=== PATIENT | female | born 1990 | race Caucasian/White ===

== ENCOUNTER 2017-01-22 18:41 | Emergency (ER) | payer OTHER ==
[2017-01-22 18:46] VITALS: BP 137/79; BMI 30.5
[2017-01-22] MEDS ORDERED: TORADOL 60 MG VIAL IM ONE (19:40)
--- NOTE | 2017-01-22 19:41 | DR.GENAD ---
HPI - PCP Primary Care Physician: NFD - Complaint/Symptoms Chief Complaint Doctors Comments: History as stated. Denies LOC Chief Complaint:: PT STATES" I HIT MY HEAD ON A BAR AT WORK TODAY I'VE HAD A HEADACHE EVERY SINCE THEN". DENIES LOC PT HAS A LARGE PATCH OF HAIR MISSING - Source History Provided: Patient - Mode of Arrival Mode of Arrival: Ambulatory - Timing Onset of Chief Complaint: 01/22/17 PMH - PMH Past Medical History: No Past Surgical History: No - Family History History of Family Medical Conditions: Yes Family Medical History: Hypertension - Social History Alcohol Use: None Do you use any recreational Drugs:: No Lives With: Family Lives Where: Home - infectious screening In the last 2 months have you had wt loss of >10#?: NO Have you had fever, night sweats or hemotysis?: No Have you traveled outside the country in the last 6 months?: No Isolation: Standard ROS - Review of Systems Eyes: No Symptoms Reported ENTM: No Symptoms Reported Respiratoy: No Symptoms Reported Cardiovascular: No Symptoms Reported Gastrointestinal/Abdominal: No Symptoms Reported Genitourinary: No Symptoms Reported Neurological: No Symptoms Reported Musculoskeletal: No Symptoms Reported Integumentary: No Symptoms Reported Hematologic/Lymphatic: No Symptoms Reported Endocrine: No Symptoms Reported Psychiatric: No Symptoms Reported All Other Systems: Reviewed and Negative PE - Vital Signs Vitals: Temperature 98 F Pulse Rate 76 Respiratory Rate 18 Blood Pressure 137/79 O2 Sat by Pulse Oximetry 100 - General Limitations: No Limitations General Appearance: Alert, In No Apparent Distress - Head Head Exam: Normal Inspection, Other (circular area of alopecia right top of scalp) - Eyes Eye exam: Normal Appearance, PERRL, EOMI - ENT ENT Exam: Normal Exam, Normal Oropharynx External Ear Exam: Normal External Inspection TM/Canal Exam: Bilateral Normal Nose Exam: Normal Nose Exam Mouth Exam: Normal Inspection Throat Exam: Normal Inspection - Neck Neck Exam: Normal Inspection - Chest Chest Inspection: Normal Inspection - Respiratory Respiratory Exam: Normal Lung Sounds Bilat Respiratory Exam: Bilateral Clear to Auscultation - Cardiovascular Cardiovascular Exam: Regular Rate, Normal Rhythm - Abdominal Exam Abdominal Exam: Normal Inspection Abdominal Tenderness: negative: RUQ, RLQ, LUQ, LLQ, Epigastrium, Suprapubic, Diffuse, Mild, Moderate, Severe, Other - Extremities Extremities Exam: Normal Inspection - Back Back Exam: Normal Inspection - Neurologic Neurological Exam: Alert, Oriented X3, CN II-XII Intact - Psychiatric Psychiatric Exam: Normal Affect - Skin Skin Exam: Warm, Dry, Intact Course - Reevaluation 1st: Improved ROR - XRAY XRAY Interpreted by: Self (Skull: negative for fracture; right frontal sinus opacification ) - Diagnosis Discharge Problem: Headache Qualifiers: Headache type: post-traumatic Headache chronicity pattern: acute headache Intractability: not intractable Qualified Code(s): G44.319 - Acute post- traumatic headache, not intractable - Discharge Plan Condition: Stable - Follow ups/Referrals Follow ups/Referrals: NFD,None [Primary Care Provider] - 3 days - Instructions
[2017-01-22] MEDS ORDERED: TORADOL 60 MG VIAL ONE (19:44)
[2017-01-22] MEDS ORDERED: TYLENOL #3 TAB (W/CODEINE) PO ONE ×2 (20:44→20:45)
--- NOTE | 2017-01-22 20:59 | RAD ---
Five views of the skull Indication: Headache after hitting bar Findings: No displaced or depressed skull fracture. No localizing soft tissue swelling within the sc alp. Facial bones appear grossly intact. No air-fluid level within the frontal or maxillary sinuses identified. Impression: No displaced or depressed skull fracture or localizing soft tissue swelling within the s calp. Reported By:
== END 2017-01-22 20:51 | disposition home or self-care (01) ==
LOC: ER 18:59
DX: G44.319 Acute post-traumatic headache, not intractable (principal); X58.XXXA Exposure to other specified factors, initial encounter; Y92.69 Other specified industrial and construction area as the place of occurrence of the external cause
CPT/HCPCS: 70260; 96372; 99282; J1885

== ENCOUNTER 2017-05-23 16:11 | Emergency (ER) | payer SELFPAY ==
[2017-05-23 16:21] VITALS: BP 129/81; BMI 32.8
[2017-05-23] MEDS ORDERED: NS 1000 ML 1,000 ML IV ONE (16:38)
--- NOTE | 2017-05-23 16:40 | DR.FEVERAD ---
HPI - Time seen Time seen: 16:35 - PCP Primary Care Physician: [facility] - Complaints/Symptoms Chief Complaint Doctor Comments: Patient states that she is hurting all over, she was treated with steroids on last week for same symptoms. The steroids made her have diarrhea and the medication was stopped Chief Complaint:: MY WAS PUT ON STEROIDS LAST SUNDAY FOR A COLD AND SHE C/O HURTING ALL OVER AND HER INSIDES FEEL LIKE THEY ARE ON FIRE..... - Source History Provided: Patient - Mode of Arrival Mode of Arrival: Ambulatory - Timing Onset of Chief Complaint: 05/20/17 PMH - PMH Past Medical History: No Past Surgical History: No - Family History History of Family Medical Conditions: No Family Medical History: Hypertension - Social History Does patient currently use any type of tobacco product: No Have you used tobacco products in the last 12 months: No Type of Tobacco Use: None Does any household member use tobacco: No Alcohol Use: None Do you use any recreational Drugs:: No Lives With: Family Lives Where: Home - infectious screening In the last 2 months have you had wt loss of >10#?: NO Have you had fever, night sweats or hemotysis?: No Have you traveled outside the country in the last 6 months?: No Isolation: Standard ROS - Review of Systems Eyes: No Symptoms Reported ENTM: No Symptoms Reported Respiratoy: No Symptoms Reported Cardiovascular: No Symptoms Reported Gastrointestinal/Abdominal: No Symptoms Reported Genitourinary: No Symptoms Reported Neurological: No Symptoms Reported Musculoskeletal: No Symptoms Reported Integumentary: No Symptoms Reported Hematologic/Lymphatic: No Symptoms Reported Endocrine: No Symptoms Reported Psychiatric: No Symptoms Reported All Other Systems: Reviewed and Negative PE - Vital Signs Vitals: Temperature 98.5 F Pulse Rate 92 Respiratory Rate 18 Blood Pressure 129/81 O2 Sat by Pulse Oximetry 98 - General Limitations: No Limitations General Appearance: Alert, In No Apparent Distress - Head Head Exam: Normal Inspection, Atraumatic - Eyes Eye exam: Normal Appearance, PERRL, EOMI - ENT ENT Exam: Normal Exam External Ear Exam: Normal External Inspection TM/Canal Exam: Bilateral Normal Nose Exam: Normal Nose Exam, Sinus Tenderness Nasal Speculum Exam: Bilateral Normal Mouth Exam: Normal Inspection Teeth Exam: Normal Inspection Throat Exam: Normal Inspection - Neck Neck Exam: Normal Inspection - Respiratory Respiratory Exam: Normal Lung Sounds Bilat Respiratory Exam: Bilateral Clear to Auscultation - Cardiovascular Cardiovascular Exam: Regular Rate, Normal Rhythm - Abdominal Exam Abdominal Exam: Normal Inspection Abdominal Tenderness: negative: RUQ, RLQ, LUQ, LLQ, Epigastrium, Suprapubic, Diffuse, Mild, Moderate, Severe, Other - Extremities Extremities Exam: Normal Inspection, Full ROM - Back Back Exam: Normal Inspection, Full ROM - Neurologic Neurological Exam: Alert, Oriented X3, CN II-XII Intact - Psychiatric Psychiatric Exam: Normal Affect - Skin Skin Exam: Warm, Dry, Intact Type of Lesion: negative: Rash, Abscess Course - Reevaluation 1st: Improved ROR - Labs Reviewed Laboratory Results Reviewed?: Yes (urine: +1leuk,rbc 10-15, ) Result Diagrams: 05/23/17 16:40 05/23/17 16:40 Laboratory: WBC 12.2 X10^3/uL (3.6-10.0) H 05/23/17 16:40 RBC 4.91 X10^6/uL (3.5-5.4) 05/23/17 16:40 Hgb 14.3 g/dL (12.0-16.0) 05/23/17 16:40 Hct 43.2 % (36.0-47.0) 05/23/17 16:40 MCV 88.1 fL (80.0-100.0) 05/23/17 16:40 MCH 29.2 pg (27.0-34.0) 05/23/17 16:40 MCHC 33.2 g/dL (33.0-35.0) 05/23/17 16:40 RDW 13.0 % (11.6-16.5) 05/23/17 16:40 Plt Count 246 X10^3/uL (150.0-450.0) 05/23/17 16:40 MPV 9.0 fL (7.4-11.0) 05/23/17 16:40 Neut % 66.9 % (42.0-75.0) 05/23/17 16:40 Lymph % 20.0 % (21.0-51.0) L 05/23/17 16:40 Hand % 5.2 % (0.0-13.0) 05/23/17 16:40 Eos % 7.3 % (0.9-2.9) H 05/23/17 16:40 Baso % 0.6 % (0.2-1.0) 05/23/17 16:40 Neut # 8.2 x10^3/uL (2.2-4.8) H 05/23/17 16:40 Lymph # 2.4 X10^3/uL (1.3-2.9) 05/23/17 16:40 Hand # 0.6 x10^3/uL (0.3-0.8) 05/23/17 16:40 Eos # 0.9 x10^3/uL (0.0-0.2) H 05/23/17 16:40 Baso # 0.1 X10^3/uL (0.0-0.1) 05/23/17 16:40 Absolute Nucleated RBC 0.0 /100WBC 05/23/17 16:40 Sodium 137 mmol/L (136-145) 05/23/17 16:40 Corrected Sodium TNP 05/23/17 16:40 Potassium 3.8 mmol/L (3.5-5.1) 05/23/17 16:40 Chloride 102 mmol/L (98-107) 05/23/17 16:40 Carbon Dioxide 29.6 mmol/L (21-32) 05/23/17 16:40 BUN 13 mg/dL (7-18) 05/23/17 16:40 Creatinine 0.84 mg/dL (0.55-1.02) 05/23/17 16:40 Est GFR (MDRD) Af Amer > 60 (>60) 05/23/17 16:40 Est GFR (MDRD) Non-Af > 60 (>60) 05/23/17 16:40 Glucose 86 mg/dL (65-99) 05/23/17 16:40 Calcium 9.1 mg/dL (8.5-10.1) 05/23/17 16:40 Specimen Type Clean catch urine 05/23/17 16:46 Urine Color Yellow (YELLOW) 05/23/17 16:46 Urine Appearance Clear (CLEAR) 05/23/17 16:46 Urine pH 5.0 (5.0 - 8.0) 05/23/17 16:46 Ur Specific [place] 1.020 (1.000-1.030) 05/23/17 16:46 Urine Protein Negative (NEGATIVE) 05/23/17 16:46 Urine Glucose (UA) Negative (NEGATIVE) 05/23/17 16:46 Urine Ketones Negative (NEGATIVE) 05/23/17 16:46 Urine Occult Blood 3+ (NEGATIVE) 05/23/17 16:46 Urine Nitrite Negative (NEGATIVE) 05/23/17 16:46 Urine Bilirubin Negative (NEGATIVE) 05/23/17 16:46 Urine Urobilinogen Normal (NORMAL) 05/23/17 16:46 Ur Leukocyte Esterase 1+ (NEGATIVE) 05/23/17 16:46 Urine RBC 10-15 /HPF (NEGATIVE) 05/23/17 16:46 Urine WBC 2-6 /HPF (NEGATIVE) 05/23/17 16:46 Ur Squamous Epith Cells Few /HPF (NEGATIVE) 05/23/17 16:46 Urine Bacteria 1+ /HPF (NEGATIVE) 05/23/17 16:46 Ur Culture Indicated? No/not indicated 05/23/17 16:46 Streptococcus Screen Negative (NEGATIVE) 05/23/17 16:46 - Diagnosis Discharge Problem: UTI (urinary tract infection) Qualifiers: Urinary tract infection type: acute cystitis Hematuria presence: with hematuria Qualified Code(s): N30.01 - Acute cystitis with hematuria - Discharge Plan Condition: Stable - Follow ups/Referrals Follow ups/Referrals: NFD,None [Primary Care Provider] - 3 days - Instructions
[2017-05-23] MEDS ORDERED: NS 1000 ML 1,000 ML ONE (16:50)
[2017-05-23 16:58] LABS: BASOPHILS # (AUTO) 0.1 X10^3/uL (0.0-0.1); BASOPHILS % (AUTO) 0.6 % (0.2-1.0); EOSINOPHILS # (AUTO) 0.9 x10^3/uL (0.0-0.2); EOSINOPHILS % (AUTO) 7.3 % (0.9-2.9); HEMATOCRIT 43.2 % (36.0-47.0); HEMOGLOBIN 14.3 g/dL (12.0-16.0); LYMPHOCYTES # (AUTO) 2.4 X10^3/uL (1.3-2.9); MEAN CORPUSCULAR HEMOGLOBIN 29.2 pg (27.0-34.0); MEAN CORPUSCULAR HGB CONC 33.2 g/dL (33.0-35.0); MEAN CORPUSCULAR VOLUME 88.1 fL (80.0-100.0); MONOCYTES # (AUTO) 0.6 x10^3/uL (0.3-0.8); MONOCYTES % (AUTO) 5.2 % (0.0-13.0); NEUTROPHILS # (AUTO) 8.2 x10^3/uL (2.2-4.8); NEUTROPHILS % (AUTO) 66.9 % (42.0-75.0); PLATELET COUNT 246 X10^3/uL (150.0-450.0); RED BLOOD COUNT 4.91 X10^6/uL (3.5-5.4); WHITE BLOOD COUNT 12.2 X10^3/uL (3.6-10.0)
[2017-05-23 17:03] LABS: BILIRUBIN,URINE NEGATIVE (NEGATIVE); BLOOD/HEMOGLOBIN,URINE 3+ (NEGATIVE); GLUCOSE, URINE NEGATIVE (NEGATIVE); KETONES,URINE NEGATIVE (NEGATIVE); LEUKOCYTE ESTERASE ,URINE 1+ (NEGATIVE); NITRITES,URINE NEGATIVE (NEGATIVE); PROTEIN,URINE NEGATIVE (NEGATIVE); UROBILINOGEN,URINE NORMAL (NORMAL)
[2017-05-23 17:17] LABS: APPEARANCE,URINE CLEAR (CLEAR); BACTERIA,URINE 1+ /HPF (NEGATIVE); COLOR,URINE YELLOW (YELLOW); SQUAMOUS EPITHELIAL CELL,UR FEW /HPF (NEGATIVE)
[2017-05-23 17:18] LABS: BLOOD UREA NITROGEN 13 mg/dL (7-18); CALCIUM 9.1 mg/dL (8.5-10.1); CARBON DIOXIDE 29.6 mmol/L (21-32); CHLORIDE 102 mmol/L (98-107); CREATININE 0.84 mg/dL (0.55-1.02); SODIUM 137 mmol/L (136-145); eGFR BLACK RACES > 60 (>60); eGFR NON BLACK RACES > 60 (>60)
[2017-05-23] MEDS ORDERED: TORADOL 30 MG VIAL IVP ONE (19:20)
[2017-05-23] MEDS ORDERED: TORADOL 30 MG VIAL ONE (20:11)
--- NOTE | 2017-05-23 23:19 | CT ---
EXAM: CT ABDOMEN AND PELVIS WITHOUT CONTRAST INDICATION: Back pain and hematuria COMPARISION: No priors available for comparison TECHNIQUE: Axial CT examination of the abdomen and pelvis was performed without intravenous contrast. Coronal an d sagittal reconstructions were created using the axial data. FINDINGS: The lung bases are clear. The liver, spleen, pancreas, adrenal glands, kidneys, and gallbladder are n ormal. There is no evidence of biliary ductal dilatation. The aorta and inferior vena cava are normal in caliber. The bowel loops are nonobstructed. No abnormal mass, lymphadenopathy, or fluid collection. Urinary bladder is normal. The appendix is normal. The regional skeleton is intact. IMPRESSION: Normal CT examination of the abdomen and pelvis. Reported By:
== END 2017-05-23 20:58 | disposition home or self-care (01) ==
LOC: ER 16:24
DX: N30.01 Acute cystitis with hematuria (principal)
CPT/HCPCS: 36415; 74176; 80048; 81001; 85025; 87070; 87880; 96365; 96374; 99283; A4222; J1885

== ENCOUNTER 2017-09-21 19:12 | Emergency (ER) | payer OTHER ==
[2017-09-21 19:20] VITALS: BP 114/70; BMI 36.5
[2017-09-21 20:06] LABS: BILIRUBIN,URINE NEGATIVE (NEGATIVE); BLOOD/HEMOGLOBIN,URINE 2+ (NEGATIVE); GLUCOSE, URINE NEGATIVE (NEGATIVE); KETONES,URINE NEGATIVE (NEGATIVE); LEUKOCYTE ESTERASE ,URINE 2+ (NEGATIVE); NITRITES,URINE NEGATIVE (NEGATIVE); PROTEIN,URINE 1+ (NEGATIVE); UROBILINOGEN,URINE 1+ (NORMAL)
[2017-09-21 20:12] LABS: APPEARANCE,URINE HAZY (CLEAR); COLOR,URINE YELLOW (YELLOW); RBC,URINE 0-2 /HPF (NEGATIVE); SQUAMOUS EPITHELIAL CELL,UR FEW /HPF (NEGATIVE)
[2017-09-21 20:13] LABS: BACTERIA,URINE TRACE /HPF (NEGATIVE)
[2017-09-21] MEDS ORDERED: TYLENOL 500 MG TAB EXTRA STRENGTH PO STA (20:23)
[2017-09-21] MEDS ORDERED: AMOXIL CAP 500 MG PO ONE ×2 (20:23→20:26)
[2017-09-21] MEDS ORDERED: TYLENOL 500 MG TAB EXTRA STRENGTH PO ONE (20:26)
--- NOTE | 2017-09-21 20:28 | DR.GENAD ---
HPI - PCP Primary Care Physician: ELISA - Complaint/Symptoms Chief Complaint Doctors Comments: Patient is complaining of left side and upper back pain for the past 24 hours. States the pain is worst when she raise her left arm or bend. States the pain is sharp with the pain 5 of 10. 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 she denies dysuria, hematuria, fever, chills, nausea or vomiting. States she is a patient of Dr. Pérez in [place] and she is 12 weeks gestation. States this is her fourth and the others were term deliveries. Chief Complaint:: PT STATES" MY SIDE IS HURTING RIGHT HERE" PT POINTS TO LT FLANK PAIN Self Treatment fo Chief Complaint: G 4 P 3 A 0 DUE DATE 04/03/18 - Nurses notes reviewed Nurses Notes Review: Yes - Source History Provided: Patient - Mode of Arrival Mode of Arrival: Ambulatory - Timing Onset of Chief Complaint: 09/21/17 Came on: Gradually - Duration Duration: Intermittent How lon Duration: Days - Location Location: left CVA and uppper back - Severity Severity: Moderate - Modifying Factors Worsens:: raising the left arm and bending Improves:: rest PMH - PMH Past Medical History: No Past Surgical History: No - Family History History of Family Medical Conditions: Yes Family Medical History: Hypertension - Social History Does any household member use tobacco: No Alcohol Use: None Do you use any recreational Drugs:: No Lives With: Family Lives Where: Home - infectious screening In the last 2 months have you had wt loss of >10#?: NO Have you had fever, night sweats or hemotysis?: No Have you traveled outside the country in the last 6 months?: No Isolation: Standard ROS - Review of Systems Constitutional: No Symptoms Reported. negative: See HPI, Chills, Diaphoresis, Fever, Malaise, Weakness, Irritable, Fatigue, Loss of Appetite, Other Eyes: No Symptoms Reported ENTM: No Symptoms Reported. negative: See HPI, Ear Pain, Ear Discharge, Pulling on Ears, Hearing Loss, Nose Pain, Nose Discharge, Epistaxis, Nose Congestion, Mouth Pain, Mouth Swelling, Loose Teeth, Drooling, Throat Pain, Throat Swelling, Ear Foreign Body Respiratoy: No Symptoms Reported. negative: See HPI, Productive Cough, Non- Productive Cough, Moist Cough, Dry Cough, Hacking Cough, Barking Cough, Brassy Cough, Orthopnea, Short of Breath, Stridor, Wheezing, Hemoptysis, Other Cardiovascular: No Symptoms Reported. negative: See HPI, Chest Pain, Edema, Palpitations, Syncope, Cyanosis, Skin Mottling, Other Gastrointestinal/Abdominal: No Symptoms Reported. negative: See HPI, Abdominal Pain, Constipation, Diarrhea, Nausea, Vomiting, Food Intolerance, Other Genitourinary: No Symptoms Reported, Frequency Neurological: No Symptoms Reported. negative: See HPI, Anxiety, Depressed, Emotional Problems, Headache, Numbness, Paresthesia, Pre-existing Deficit, Seizure, Tingling, Tremors, Weakness, Dizziness, Problems Walking, Speech Problem, Other Musculoskeletal: No Symptoms Reported, Back Pain, Left Integumentary: No Symptoms Reported. negative: See HPI, Change in Color, Change in Hair/Nails, Dryness, Lesions, Lumps, Rash, Itching, Wound, Bruises, Juandice, Other Hematologic/Lymphatic: No Symptoms Reported Endocrine: No Symptoms Reported. negative: See HPI, Excessive Sweating, Flushing, Intolerance to Cold, Intolerance to Heat, Increased Hunger, Increased Thirst, Increased Urine, Unexplained Weight Gain, Unexplained Weight Loss, Failure to Thrive, Decreased Appetite, Other Psychiatric: No Symptoms Reported. negative: See HPI, Anxiety, Depression, Hallucinations, Excessive crying, Suicidal, Other PE - Vital Signs Vitals: Temperature 98.6 F Pulse Rate 79 Respiratory Rate 18 Blood Pressure 114/70 O2 Sat by Pulse Oximetry 99 - General Limitations: No Limitations General Appearance: Alert, In Distress (slight) - Head Head Exam: Normal Inspection, Atraumatic, Normocephalic - Eyes Eye exam: Normal Appearance, PERRL, EOMI. negative: Scleral Icterus, Conjunctival Injection, Nystagmus, Miosis, Mydrasis, Periorbital Swelling, Periorbital Tenderness, Other - ENT ENT Exam: Normal Exam, Normal Oropharynx, Normal External Ear Exam, Mucous Membranes Moist, TM's Normal Bilaterally External Ear Exam: Normal External Inspection TM/Canal Exam: Bilateral Normal Nose Exam: Normal Nose Exam Mouth Exam: Normal Inspection. negative: Drooling, Trismus, Lip Swelling, Tongue Elevation, Tongue Swelling, Laceration, Other Throat Exam: Normal Inspection. negative: Tonsillar Erythema, Tonsillomegaly, Tonsillar Exudate, R Peritonsillar Mass, L Peritonsillar Mass, Muffled Voice, Other - Neck Neck Exam: Normal Inspection, Full ROM, Trachea Midline. negative: Tenderness, Meningismus, Lymphadenopathy, Thyromegaly, Other - Chest Chest Inspection: Normal Inspection, Symmetric Chest Wall Rise. negative: Tenderness, Rash, Abscess, Other - Respiratory Respiratory Exam: Normal Lung Sounds Bilat Respiratory Exam: Bilateral Clear to Auscultation - Cardiovascular Cardiovascular Exam: Regular Rate, Normal Rhythm, Normal Heart Sounds. negative : Bradycardia, Tachycardia, Irregular Rhythm, Systolic Murmur, Diastolic Murmur , Rubs, Gallop, Clicks, JVD, +S1, +S2, +S3, +S4, Other - Abdominal Exam Abdominal Exam: Normal Inspection, Normal Bowel Sounds, Soft. negative: Distention, Tenderness, Guarding, Rebound, Rigidity, Dimnished Bowel Sounds, Hyperactive Bowel Sounds, Hypoactive Bowel Sounds, Organomegaly, Trauma, Incision, Ascites, Mass, Bruit, Pulsatile Mass, Hernia, Other Abdominal Tenderness: negative: RUQ, RLQ, LUQ, LLQ, Epigastrium, Suprapubic, Diffuse, Mild, Moderate, Severe, Other - Back Back Exam: Normal Inspection, Full ROM, Tenderness (left subscapular tenderness) , (L) CVA Tenderness. negative: (R) CVA Tenderness, Muscle Spasm, Paraspinal Tenderness, Vertebral Tenderness, Rashes, (R) Sciatic Notch Tenderness, (L) Sciatic Notch Tendern, (R) Straight Leg Raise, (L) Straight Leg Raise, Other - Neurologic Neurological Exam: Alert, Oriented X3, CN II-XII Intact, Normal Gait, Reflexes Normal. negative: Motor Sensory Deficit, Other - Psychiatric Psychiatric Exam: Normal Affect, Normal Mood. negative: Depressed, Agitated, Anxious, Flat Affect, Manic, Homicidal Ideation, Suicidal Ideation, Other - Skin Skin Exam: Warm, Dry, Intact, Normal Color. negative: Rash, Cyanosis, Diaphoresis, Erythema, Pallor, Mottled, Other ROR - Labs Reviewed Laboratory Results Reviewed?: Yes (all lab results reviewed and discussed with patient.) Laboratory: Specimen Type Clean catch urine 09/21/17 19:59 Urine Color Yellow (YELLOW) 09/21/17 19:59 Urine Appearance Hazy (CLEAR) 09/21/17 19:59 Urine pH 6.0 (5.0 - 8.0) 09/21/17 19:59 Ur Specific [place] 1.020 (1.000-1.030) 09/21/17 19:59 Urine Protein 1+ (NEGATIVE) 09/21/17 19:59 Urine Glucose (UA) Negative (NEGATIVE) 09/21/17 19:59 Urine Ketones Negative (NEGATIVE) 09/21/17 19:59 Urine Occult Blood 2+ (NEGATIVE) 18 19:59 Urine Nitrite Negative (NEGATIVE) 09/21/17 19:59 Urine Bilirubin Negative (NEGATIVE) 09/21/17 19:59 Urine Urobilinogen 1+ (NORMAL) 09/21/17 19:59 Ur Leukocyte Esterase 2+ (NEGATIVE) 09/21/17 19:59 Urine RBC 0-2 /HPF (NEGATIVE) 09/21/17 19:59 Urine WBC 3-5 /HPF (NEGATIVE) 18 19:59 Ur Squamous Epith Cells Few /HPF (NEGATIVE) 09/21/17 19:59 Urine Bacteria Trace /HPF (NEGATIVE) 09/21/17 19:59 Ur Culture Indicated? No/not indicated 09/21/17 19:59 - Diagnosis Discharge Problem: Urinary tract infection, Musculoskeletal back pain - Discharge Plan Disposition: HOME, SELF-CARE Condition: Stable Prescriptions: Amoxicillin 500 mg PO TID #30 cap - Follow ups/Referrals Follow ups/Referrals: MASON PÉREZ [Primary Care Provider] - 3 days - Instructions Instructions: Urinary Tract Infection, Adult, Back Pain, Adult, [id number], Musculoskeletal Pain
== END 2017-09-21 20:45 | disposition home or self-care (01) ==
LOC: ER 19:31
DX: N39.0 Urinary tract infection, site not specified (principal); M54.89 Other dorsalgia
CPT/HCPCS: 81001; 99282

== ENCOUNTER 2017-10-23 19:01 | Emergency (ER) | payer OTHER ==
[2017-10-23 19:16] VITALS: BMI 39.9
--- NOTE | 2017-10-23 19:45 | DR.GENAD ---
HPI - PCP Primary Care Physician: chase - HPI Comment HPI Comment: PATIENT 16 WEEKS . NO FEVER OR DYSURIA. - Complaint/Symptoms Chief Complaint Doctors Comments: LOWER BACK AND LOWER ABDOMINAL PAIN TIMES SEVERAL HOURS. Chief Complaint:: pt c/o lower abd pain and back pain pt on bedrest because placenta is low on the cervix - Nurses notes reviewed Nurses Notes Review: Yes - Source History Provided: Patient - Mode of Arrival Mode of Arrival: Ambulatory - Timing Onset of Chief Complaint: 10/23/17 Came on: Suddenly - Duration Duration: Constant Duration: Days - Severity Severity: Moderate PMH - PMH Past Medical History: No Past Surgical History: No - Family History History of Family Medical Conditions: No Family Medical History: Hypertension - Social History Does any household member use tobacco: No Alcohol Use: None Do you use any recreational Drugs:: No Lives With: Family Lives Where: Home - infectious screening In the last 2 months have you had wt loss of >10#?: NO Have you had fever, night sweats or hemotysis?: No Have you traveled outside the country in the last 6 months?: No Isolation: Standard ROS - Review of Systems Constitutional: No Symptoms Reported Eyes: No Symptoms Reported ENTM: No Symptoms Reported Respiratoy: No Symptoms Reported Cardiovascular: No Symptoms Reported Gastrointestinal/Abdominal: Abdominal Pain, Nausea Genitourinary: No Symptoms Reported Neurological: No Symptoms Reported Musculoskeletal: Back Pain Integumentary: No Symptoms Reported Hematologic/Lymphatic: No Symptoms Reported Endocrine: No Symptoms Reported All Other Systems: Reviewed and Negative PE - Vital Signs Vitals: Temperature 99.2 F Pulse Rate [Left Brachial] 97 Pulse Rate 99 Respiratory Rate 18 Blood Pressure [Left Arm] 116/75 Blood Pressure 120/70 O2 Sat by Pulse Oximetry 99 - General Limitations: No Limitations General Appearance: Alert - Head Head Exam: Normal Inspection - Eyes Eye exam: Normal Appearance - ENT ENT Exam: Normal External Ear Exam External Ear Exam: Normal External Inspection TM/Canal Exam: Bilateral Normal Nose Exam: Normal Nose Exam Mouth Exam: Normal Inspection Throat Exam: Normal Inspection - Neck Neck Exam: Trachea Midline - Chest Chest Inspection: Symmetric Chest Wall Rise - Respiratory Respiratory Exam: Normal Lung Sounds Bilat Respiratory Exam: Bilateral Clear to Auscultation - Cardiovascular Cardiovascular Exam: Regular Rate, Normal Rhythm, Normal Heart Sounds - Abdominal Exam Abdominal Exam: Normal Bowel Sounds, Soft. negative: Tenderness - Extremities Extremities Exam: Normal Inspection - Back Back Exam: Normal Inspection - Neurologic Neurological Exam: Alert, Oriented X3 - Psychiatric Psychiatric Exam: Normal Affect, Normal Mood - Skin Skin Exam: Normal Color MDM - Additional Information Additional Information Obtained From: Family - Differential Diagnosis Differential Diagnosis: ABDOMINAL PAIN IN , LOWER BACK PAIN, UTI, THREATENED MISCARRIAGE Course - Treatment Treatment: SEE ORDERS. PO MACROBIB IN ED. - Education/Counseling Education/Counseling: Patient, Family, Education Educated On: Treatment, Diagnosis, Needs for Follow Up ROR - Labs Reviewed Laboratory Results Reviewed?: Yes Result Diagrams: 10/23/17 19:50 10/23/17 19:50 Laboratory: WBC 12.5 X10^3/uL (3.6-10.0) H 10/23/17 19:50 RBC 4.58 X10^6/uL (3.5-5.4) 10/23/17 19:50 Hgb 13.4 g/dL (12.0-16.0) 10/23/17 19:50 Hct 39.2 % (36.0-47.0) 10/23/17 19:50 MCV 85.5 fL (80.0-100.0) 10/23/17 19:50 MCH 29.3 pg (27.0-34.0) 10/23/17 19:50 MCHC 34.2 g/dL (33.0-35.0) 10/23/17 19:50 RDW 13.4 % (11.6-16.5) 10/23/17 19:50 Plt Count 259 X10^3/uL (150.0-450.0) 10/23/17 19:50 MPV 9.1 fL (7.4-11.0) 10/23/17 19:50 Neut % 66.3 % (42.0-75.0) 10/23/17 19:50 Lymph % 20.3 % (21.0-51.0) L 10/23/17 19:50 [place] % 8.7 % (0.0-13.0) 10/23/17 19:50 Eos % 4.2 % (0.9-2.9) H 10/23/17 19:50 Baso % 0.5 % (0.2-1.0) 10/23/17 19:50 Neut # 8.3 x10^3/uL (2.2-4.8) H 10/23/17 19:50 Lymph # 2.5 X10^3/uL (1.3-2.9) 10/23/17 19:50 [place] # 1.1 x10^3/uL (0.3-0.8) H 10/23/17 19:50 Eos # 0.5 x10^3/uL (0.0-0.2) H 10/23/17 19:50 Baso # 0.1 X10^3/uL (0.0-0.1) 10/23/17 19:50 Absolute Nucleated RBC 0.0 /100WBC 10/23/17 19:50 Sodium 138 mmol/L (136-145) 10/23/17 19:50 Corrected Sodium TNP 10/23/17 19:50 Potassium 3.5 mmol/L (3.5-5.1) 10/23/17 19:50 Chloride 102 mmol/L (98-107) 10/23/17 19:50 Carbon Dioxide 25.2 mmol/L (21-32) 10/23/17 19:50 BUN 10 mg/dL (7-18) 10/23/17 19:50 Creatinine 0.57 mg/dL (0.55-1.02) 10/23/17 19:50 Est GFR (MDRD) Af Amer > 60 (>60) 10/23/17 19:50 Est GFR (MDRD) Non-Af > 60 (>60) 10/23/17 19:50 Glucose 95 mg/dL (65-99) 10/23/17 19:50 Calcium 8.5 mg/dL (8.5-10.1) 10/23/17 19:50 Corrected Calcium 9.5 mg/dL (8.5-10.1) 10/23/17 19:50 Total Bilirubin 0.10 mg/dL (0.2-1.0) L 10/23/17 19:50 AST 62 Units/L (15-37) H 10/23/17 19:50 ALT 204 Units/L (12-78) H 10/23/17 19:50 Alkaline Phosphatase 63 Units/L (46-116) 10/23/17 19:50 Total Protein 6.9 g/dL (6.4-8.2) 10/23/17 19:50 Albumin 2.8 g/dL (3.4-5.0) L 10/23/17 19:50 Globulin 4.1 g/dL (2.5-4.5) 10/23/17 19:50 Albumin/Globulin Ratio 0.7 Ratio (1.1-2.1) L 10/23/17 19:50 HCG, Quant 71703 mIU/mL (0-6) H 10/23/17 19:50 Specimen Type Clean catch urine 10/23/17 19:43 Urine Color Yellow (YELLOW) 10/23/17 19:43 Urine Appearance Hazy (CLEAR) 10/23/17 19:43 Urine pH 6.0 (5.0 - 8.0) 10/23/17 19:43 Ur Specific [place] 1.025 (1.000-1.030) 10/23/17 19:43 Urine Protein Negative (NEGATIVE) 10/23/17 19:43 Urine Glucose (UA) Negative (NEGATIVE) 10/23/17 19:43 Urine Ketones Negative (NEGATIVE) 10/23/17 19:43 Urine Occult Blood 3+ (NEGATIVE) 10/23/17 19:43 Urine Nitrite Negative (NEGATIVE) 10/23/17 19:43 Urine Bilirubin Negative (NEGATIVE) 10/23/17 19:43 Urine Urobilinogen Normal (NORMAL) 10/23/17 19:43 Ur Leukocyte Esterase 3+ (NEGATIVE) 10/23/17 19:43 Urine RBC 10-12 /HPF (NONE SEEN) 10/23/17 19:43 Urine WBC 10-12 /HPF (NONE SEEN) 10/23/17 19:43 Ur Squamous Epith Cells Few /HPF (NEGATIVE) 10/23/17 19:43 Urine Bacteria 2+ /HPF (NEGATIVE) 10/23/17 19:43 Ur Culture Indicated? Yes/culture set up 10/23/17 19:43 - XRAY XRAY Interpreted by: Radiologist XRAY Findings: REPORT DISCUSS WITH PATIENT. - Diagnosis Discharge Problem: Abdominal pain affecting UTI (urinary tract infection) Qualifiers: Urinary tract infection type: site unspecified Hematuria presence: with hematuria Qualified Code(s): N39.0 - Urinary tract infection, site not specified - Discharge Plan Disposition: 01 HOME, SELF-CARE Condition: Stable Prescriptions: Nitrofurantoin Macro [Macrobid Cap 100 mg Ext Rel] 100 mg PO BID #14 cap - Follow ups/Referrals Follow ups/Referrals: MASON PÉREZ [Primary Care Provider] - 10/24/17 - Instructions Instructions: Abdominal Pain During , [id number], Urinary Tract Infection, Adult, [id number], and Urinary Tract Infection, Pelvic Rest Additional Instructions: RETURN TO ED IF WORSE.
[2017-10-23 19:58] LABS: BASOPHILS # (AUTO) 0.1 X10^3/uL (0.0-0.1); BASOPHILS % (AUTO) 0.5 % (0.2-1.0); EOSINOPHILS # (AUTO) 0.5 x10^3/uL (0.0-0.2); EOSINOPHILS % (AUTO) 4.2 % (0.9-2.9); HEMATOCRIT 39.2 % (36.0-47.0); HEMOGLOBIN 13.4 g/dL (12.0-16.0); LYMPHOCYTES # (AUTO) 2.5 X10^3/uL (1.3-2.9); LYMPHOCYTES % (AUTO) 20.3 % (21.0-51.0); MEAN CORPUSCULAR HEMOGLOBIN 29.3 pg (27.0-34.0); MEAN CORPUSCULAR HGB CONC 34.2 g/dL (33.0-35.0); MEAN CORPUSCULAR VOLUME 85.5 fL (80.0-100.0); MEAN PLATELET VOLUME 9.1 fL (7.4-11.0); MONOCYTES # (AUTO) 1.1 x10^3/uL (0.3-0.8); MONOCYTES % (AUTO) 8.7 % (0.0-13.0); NEUTROPHILS # (AUTO) 8.3 x10^3/uL (2.2-4.8); NEUTROPHILS % (AUTO) 66.3 % (42.0-75.0); PLATELET COUNT 259 X10^3/uL (150.0-450.0); RED BLOOD COUNT 4.58 X10^6/uL (3.5-5.4); RED CELL DISTRIBUTION WIDTH 13.4 % (11.6-16.5); WHITE BLOOD COUNT 12.5 X10^3/uL (3.6-10.0)
[2017-10-23 20:09] LABS: ALANINE AMINOTRANSFERASE 204 Units/L (12-78); ALBUMIN 2.8 g/dL (3.4-5.0); ALKALINE PHOSPHATASE 63 Units/L (46-116); ASPARTATE AMINO TRANSFERASE 62 Units/L (15-37); BLOOD UREA NITROGEN 10 mg/dL (7-18); CALCIUM 8.5 mg/dL (8.5-10.1); CARBON DIOXIDE 25.2 mmol/L (21-32); CHLORIDE 102 mmol/L (98-107); COR CA(FOR HYPOALB) 9.5 mg/dL (8.5-10.1); CREATININE 0.57 mg/dL (0.55-1.02); SODIUM 138 mmol/L (136-145); TOTAL PROTEIN 6.9 g/dL (6.4-8.2); eGFR BLACK RACES > 60 (>60); eGFR NON BLACK RACES > 60 (>60)
[2017-10-23 20:11] LABS: BILIRUBIN,URINE NEGATIVE (NEGATIVE); BLOOD/HEMOGLOBIN,URINE 3+ (NEGATIVE); GLUCOSE, URINE NEGATIVE (NEGATIVE); KETONES,URINE NEGATIVE (NEGATIVE); LEUKOCYTE ESTERASE ,URINE 3+ (NEGATIVE); NITRITES,URINE NEGATIVE (NEGATIVE); PROTEIN,URINE NEGATIVE (NEGATIVE); UROBILINOGEN,URINE NORMAL (NORMAL)
[2017-10-23 20:23] LABS: APPEARANCE,URINE HAZY (CLEAR); BACTERIA,URINE 2+ /HPF (NEGATIVE); COLOR,URINE YELLOW (YELLOW); SQUAMOUS EPITHELIAL CELL,UR FEW /HPF (NEGATIVE)
--- NOTE | 2017-10-23 21:38 | US ---
HISTORY: Lower abdominal pain, back pain Study: OB ultrasound greater than 14 weeks Comparison: None Technique: Multiple grayscale and color flow Doppler images of the pelvis were obtained with focused evaluation of the fetus. Findings: A single living intrauterine gestation is identified with heart tones of 146 beats per minute. A breech presentation is observed. The placenta is fundal. Amniotic fluid volume appears adequate. De tailed anatomic screening was not performed. Value (cm) Estimated Gestational Age BPD 3.5 16 weeks 6 days HC 13.04 16 weeks 5 days AC 11.0 16 weeks 6 days FL 2.2 16 weeks 4 days Average age by ultrasound: 16 weeks 5 days UDAY by ultrasound: 04/04/2018 Estimated weight: 167 g (0.37 lb) IMPRESSION: Single living intrauterine gestation as detailed above measuring 16 weeks 5 days with heart rat e 146 bpm. No sonographic abnormalities identified. Reported By:
[2017-10-23] MEDS ORDERED: MACROBID CAP 100 MG EXT REL PO ONE ×2 (22:01→22:03)
[2017-10-23 22:09] VITALS: BP 116/75
== END 2017-10-23 22:09 | disposition home or self-care (01) ==
LOC: ER 19:18
DX: R10.84 Generalized abdominal pain (principal); N39.0 Urinary tract infection, site not specified; Z3A.16 16 weeks gestation of pregnancy
CPT/HCPCS: 36415; 76815; 80053; 81001; 84702; 85025; 87086; 99284